=== PATIENT | male | born 1985 | race Caucasian/White ===

== ENCOUNTER 2023-12-17 16:55 | Inpatient (IN) | payer SELFPAY ==
[2023-12-17 17:08] VITALS: BP 115/78; PULSE 102; RESP 18; TEMP 36.2; O2SAT 99; BMI 44.9
--- NOTE | 2023-12-17 17:42 | PC.NURSE ---
pt a+o x3, he denies pain, vss. pt walked in to waiting room and reported SI w plan to hang himself. he reports that he went to [place] to buy rope but didn't have any money. he said that he thought about stealing the rope but did not. he says that he's seeking help. pt changed into hospital attire, belongings searched and placed into locker 4. belongings list done and signed by him.. pt cooperative with the process. pt resting quietly in his room at this time.
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
[2023-12-17 18:32] LABS: Appearance Urine Cloudy; Color Urine Dark Yellow; Glucose Urine UA Negative (Negative); Leukocyte Esterase Urine Trace (Negative); Nitrite Urine Negative (Negative); PH 6.5 (5.0-9.0); Specific Gravity - Urine >= 1.030 (1.005-1.025); UMIC TRIGGER UACC YES; Urine Blood Negative (Negative); Urine Ketones 15 mg/dL (Negative); Urine Protein 100 (2+) mg/dL (Neg-Trace)
[2023-12-17 18:40] LABS: Amphetamine Screen Urine Not Detected (Not Detect); Bacteria Urine None Seen (None Seen); Barbiturates, Urine Not Detected (Not Detect); Benzodiazepines Screen Urine Not Detected (Not Detect); Cannabinoid Screen Urine POSITIVE (Not Detect); Cocaine Screen Urine Not Detected (Not Detect); Fentanyl, urine Not Detected (Not Detect); Hyaline Casts Urine >20 /LPF (0-2); Opiate Screen Urine Not Detected (Not Detect); Phencyclidine Screen Urine Not Detected (Not Detect); RBC Urine 0-2 /HPF (0-2); UACC Culture Trigger YES
[2023-12-17] MEDS: HaloperidoL 5 MG TABLET PO (19:09)
[2023-12-17] MEDS: LORazepam 1 MG TABLET 2 MG PO (19:09)
[2023-12-17 20:37] LABS: MANUAL DIFF FLAG NO
[2023-12-17 20:39] LABS: Basophils Percent Auto 0.2 % (0-2); Eosinophils Absolute Auto 0.1 X10*3/uL (0.0-0.4); Eosinophils Percent Auto 0.7 % (0-4); Hematocrit 41.6 % (42.0-52.0); Hemoglobin 14.4 g/dl (14.0-18.0); Imm Gran Abs Auto 0.03 X10*3/uL (0.00-0.03); Imm Gran Pct Auto 0.4 % (0.0-0.4); Lymphocytes Absolute Auto 2.4 X10*3/uL (1.2-4.9); Lymphocytes Percent Auto 29.1 % (20-40); Mean Corpuscular HGB Conc 34.6 g/dl (31.0-36.0); Mean Corpuscular Hemoglobin 28.3 pg (27.0-33.0); Mean Corpuscular Volume 81.9 fL (80.0-98.0); Mean Platelet Volume 10.2 fL (9.4-12.4); Monocytes Absolute Auto 0.7 X10*3/uL (0.1-1.2); Monocytes Percent Auto 8.8 % (2-11); Neutrophils Percent Auto 60.8 % (45-73); Platelet Count 232 X10*3/uL (160-400); Red Blood Count 5.08 X10*6/uL (4.60-5.80); Red Cell Distribution Width 13.2 % (11.0-16.0); White Blood Count 8.2 X10*3/uL (4.8-10.8)
[2023-12-17 20:53] LABS: Ethanol < 10 mg/dL
[2023-12-17 20:56] LABS: Alanine Aminotransferase 46 U/L (0-40); Albumin Level 3.7 g/dL (3.5-5.0); Alkaline Phosphatase 72 U/L (39-117); Anion Gap 12 (12-20); Aspartate Amino Transferase 40 U/L (5-37); Bilirubin Direct 0.1 mg/dL (0.0-0.5); Bilirubin Total 0.3 mg/dL (0.0-1.0); Blood Urea Nitrogen 18 mg/dL (9-16); Calcium 9.1 mg/dL (8.4-10.2); Carbon Dioxide 27 mmol/L (22-29); Chloride 105 mmol/L (96-108); Creatinine Clr Calc Pharmacy 129.5; Estimated Glomerular Filt Rate > 60; Glucose Random 104 mg/dL (60-115); Potassium 3.6 mmol/L (3.3-5.1); Sodium 140 mmol/L (135-145); Total Protein 6.2 g/dL (6.5-8.0)
[2023-12-18 02:14] VITALS: BP 104/68; PULSE 70; RESP 17; TEMP 36.5; O2SAT 99
[2023-12-18 08:00] VITALS: BP 117/76; PULSE 76; TEMP 36.7; O2SAT 97
[2023-12-18 08:30] LABS: COVID-19 Test Negative (Negative); IDNOW Serial# 152EDE1D
[2023-12-18] MEDS: Haloperidol Lactate 5 MG/ML VIAL IM (10:10)
[2023-12-18] MEDS: LORazepam 2 MG/ML VIAL IM (10:10)
--- NOTE | 2023-12-18 10:53 | PHA.MEDREC ---
Pharmacy Consult ? Medication Reconciliation Pharmacy has completed the medication reconciliation.No home meds per nursing
--- NOTE | 2023-12-18 10:55 | MHC.CARE ---
Pt has been accepted to [facility].
--- NOTE | 2023-12-18 11:58 | PC.NURSE ---
Bernardo was OOB this morning and was observed self dialoguing and responding to internal stimuli in his room. Bernardo had a few episodes of increased agitation when he thought staff were looking in his room and then stated he was Gabriele and stated I bet you didn't know they will all come to baptism and serve me . Bernardo then began yelling at a staff member that they needed to stop making demonic faces at him. He was difficult to redirect and began to advance toward the staff and was making threatening statements. Security and MD called. IM Haldol 5mg and IM Ativan 2mg given. Bernardo was moved to the first room that opened that had a door as hearing staff and other patients talking was very triggering for him. Bernardo is currently resting in bed.
[2023-12-18 15:46] VITALS: RESP 18
--- OUTSIDE RECORDS SUMMARY | 2023-12-18 16:33 | XMS_ITS | Continuity of Care Document ---
Author Name Unknown Organization Psych Address Unknown Care Team Providers Care Qualified Craft Worker Electrician Name Role Phone No Local PCP, No Local PCP Primary Care Physicia n Unavailable Encounter Date(s): 06/20/23 - 06/26/23 Psych [address], [place] [address] - Encounter Diagnosis Cannabis abuse(Discharge Diagnosis) - 06/26/23 Alcohol abuse(Discharge Diagnosis) - 06/26/23 Paranoid schizophrenia, chronic condition with acute exacerbation(Discharge Diagnosis) - 06/24/23 Auditory hallucinations(Discharge Diagnosis) - 06/20/23 Discharge Disposition: Home or Self Care Attending Physician: CHUY GIFFORD MD Admitting Physician: CHUY GIFFORD MD Allergies, Adverse Reactions, Alerts Substance Reaction Severity Status buPROPion Urticaria Mild Active Assessment and Plan Extracted from: Title:Physician Progress Note - Psychiatric Auth or:Kristian Rand MD Date:06/25/23 He has reconstituted quickly with medication and safe environment.?? He is indeed fortunate that low-dose olanzapine has been so effective, he has not required any as needed supplementation.?? He will return to his previous housing??but now with a series of??wraparound services including primary care and mental health referrals. Auditory hallucinations Paranoid schizophrenia, chronic condition with acute exacerbation Discharge tomorrow Inpatient acetaminophen, 1000 mg= 2 tab(s), Oral, q6hr, PRN melatonin, 6 mg= 2 tab(s), Oral, qHS, PRN Milk of Magnesia, 30 mL, Oral, Daily, PRN Mylanta, 30 mL, Oral, QID, PRN OLANZapine, 10 mg= 1 tab(s), Oral, qHS Vistaril, 25 mg= 1 tab(s), Oral, q4hr, PRN Home diphenhydrAMINE 25 mg oral tablet, 25 mg= 1 tab(s), Oral, q6hr, PRN Excedrin Migraine 250 mg-250 mg-65 mg oral tablet, 2 tab(s), Oral, q6hr, PRN Tums 500 mg oral tablet, chewable, 500 mg= 1 tab(s), Chewed, Daily, PRN ?? I certify that inpatient psychiatric hospital admission is medically necessary for treatment which could reasonably be expected to improve the patient's condition: Yes_ In need of ILOC due to:??Decompensation??of chronic mental health??condition_ Is the patient involuntary? _No ?? Treatment Plan Discussed and Reviewed with Patient:_Yes Receiving active treatment through medication, individual, group, and milieu therapy Tomorrow morning Extracted from: Title:Physician Progress Note - Psychiatric Auth or:Kristian Rand MD Date:06/24/23 He has been able??to reconst itute with low-dose olanzapine??and??a few days of??lorazepam supplementation.?? We talked about??discharge within the next 2 days??and he agrees with this plan.?? career services director is working to secure??his ongoing housing??and placement with aftercare services Auditory hallucinations ??Paranoid schizophrenia??with decompensation??due to medication nonadherence??and reconstitution??following medication??reinstatement Taper lorazepam,??continue medication and plan for midweek discharge Inpatient acetaminophen, 1000 mg= 2 tab(s), Oral, q6hr, PRN LORazepam, 1 mg= 1 tab(s), Oral, TID, PRN melatonin, 6 mg= 2 tab(s), Oral, qHS, PRN Milk of Magnesia, 30 mL, Oral, Daily, PRN Mylanta, 30 mL, Oral, QID, PRN OLANZapine, 10 mg= 1 tab(s), Oral, qHS Vistaril, 25 mg= 1 tab(s), Oral, q4hr, PRN Home diphenhydrAMINE 25 mg oral tablet, 25 mg= 1 tab(s), Oral, q6hr, PRN Excedrin Migraine 250 mg-250 mg-65 mg oral tablet, 2 tab(s), Oral, q6hr, PRN Tums 500 mg oral tablet, chewable, 500 mg= 1 tab(s), Chewed, Daily, PRN ?? I certify that inpatient psychiatric hospital admission is medically necessary for treatment which could reasonably be expected to improve the patient's condition: _Yes In need of ILOC due to:??Psychosis_ Is the patient involuntary? _ id the patient receive a court order for involuntary medication? _ ?? Treatment Plan Discussed and Reviewed with Patient:_ Receiving active treatment through medication, individual, group, and milieu therapy Midweek??is a target date Extracted from: Title:Physician Progress Note - Psychiatric Auth or:José Manuel Lopez MD Date:06/23/23 The patient appears to be im proving; symptoms of psychosis are subsiding, in particular auditory hallucinations and paranoia. ??The patient is currently on olanzapine 10 mg nightly, which has been helpful in resolving his current??symptoms. The patient continues to be in need of inpatient hospitalization for stabilization and medication management. Auditory hallucinations Inpatient acetaminophen, 1000 mg= 2 tab(s), Oral, q6hr, PRN LORazepam, 1 mg= 1 tab(s), Oral, TID, PRN melatonin, 6 mg= 2 tab(s), Oral, qHS, PRN Milk of Magnesia, 30 mL, Oral, Daily, PRN Mylanta, 30 mL, Oral, QID, PRN OLANZapine, 10 mg= 1 tab(s), Oral, qHS Vistaril, 25 mg= 1 tab(s), Oral, q4hr, PRN Home diphenhydrAMINE 25 mg oral tablet, 25 mg= 1 tab(s), Oral, q6hr, PRN Excedrin Migraine 250 mg-250 mg-65 mg oral tablet, 2 tab(s), Oral, q6hr, PRN Tums 500 mg oral tablet, chewable, 500 mg= 1 tab(s), Chewed, Daily, PRN I certify that inpatient psychiatric hospital admission is medically necessary for treatment which could reasonably be expected to improve the patient's condition: _yes In need of ILOC due to:_psychosis Is the patient involuntary? _No ?? Treatment Plan Discussed and Reviewed with Patient:_y Receiving active treatment through medication, individual, group, and milieu therapy Extracted from: Title:Physician Progress Note - Psychiatric Auth or:José Manuel Lopez MD Date:06/22/23 The patient appears to be im proving; symptoms of psychosis are subsiding. The patient is currently on olanzapine 10 mg nightly, which seems to be helpful in resolving his psychotic symptoms. The patient continues to be in need of inpatient hospitalization for stabilization and medication management. Auditory hallucinations Inpatient acetaminophen, 1000 mg= 2 tab(s), Oral, q6hr, PRN LORazepam, 1 mg= 1 tab(s), Oral, TID, PRN melatonin, 6 mg= 2 tab(s), Oral, qHS, PRN Milk of Magnesia, 30 mL, Oral, Daily, PRN Mylanta, 30 mL, Oral, QID, PRN OLANZapine, 10 mg= 1 tab(s), Oral, qHS Vistaril, 25 mg= 1 tab(s), Oral, q4hr, PRN Home diphenhydrAMINE 25 mg oral tablet, 25 mg= 1 tab(s), Oral, q6hr, PRN Excedrin Migraine 250 mg-250 mg-65 mg oral tablet, 2 tab(s), Oral, q6hr, PRN Tums 500 mg oral tablet, chewable, 500 mg= 1 tab(s), Chewed, Daily, PRN ?? I certify that inpatient psychiatric hospital admission is medically necessary for treatment which could reasonably be expected to improve the patient's condition: _yes In need of ILOC due to:_psychosis Is the patient involuntary? _No ?? Treatment Plan Discussed and Reviewed with Patient:_y Receiving active treatment through medication, individual, group, and milieu therapy Extracted from: Title:History & Physical - Psychiatric Author:Maile Rand MD Date:06/21/23 Reason for Admission The patient presents with psychiatric problem. ??38 year old male presents to the ED with a psychiatric problem. Patient reports he is having problems and a??? war? ??with his head. Patient notes he had drank alcohol tonight and smoked marijuana. Patient reports he had been hearing voices in his head earlier. Patient denies suicidal and homicidal ideation. Patient? s history is limited due to mental status..?? [1] Substance Abuse History He does not provide details but??offers that he knows he should not be drinking alcohol??or using cannabis??and describes it as self-medication . Mental Status Exam The patient is alert??and oriented in all 4 spheres,??and to situation.?? They are dressed in hospital garb??with acceptable hygiene.?? The behavior is appropriate??but reserved and they are engaged in the interview.?? Psychomotor energy is slightly slowed and there are no tics,??tremors, or involuntary movements.?? Speech??is normal pat, tone, and volume??without conversational lag.?? Mood is?? better ??and affect is blunted??but with good eye contact. ??Thought process is concrete and goal oriented, and it is future oriented.?? Thought content is currently??without??expressed or observed??hallucination or??expressed delusion. ??At the moment he does not appear to be responding to internal stimuli.?Memory is intact to recent events as tested by known items. There is no self-harm expression.?There is no suicidal or homicidal expression.?? There are no prominent cognitive distortions.?? Insight and judgment are fair, attention and concentration are??mildly distracted.??Impulse control is intact. ??Knowledge is appropriate for level of education. ? Assessment/Plan He has a pre-existing diagnosis of??paranoid schizophrenia??and??provides a??coherent history of??onset of symptoms, history,??effectiveness of medication??and willingness to reenter treatment.?? He also provides access to??collateral information and we will gain this.?? In the meantime he has had a very positive??response to low- dose olanzapine/lorazepam. Diagnosis Auditory hallucinations ??Paranoid schizophrenia Plan Reintroduce medication, olanzapine 10 mg daily??lorazepam 1 mg??p.o. 3 times daily??as needed,??collateral??information gathering Functional Status 06/26/23 ADLs Independent Medications diphenhydrAMINE 25 mg oral tablet 25 mg = 1 tab(s), Oral, q6hr, PRN PRN: as needed for allergy symptoms Start Date: 06/20/23 Status: Ordered Excedrin Migraine 250 mg-250 mg-65 mg oral tablet 2 tab(s), Oral, q6hr, PRN PRN for headache Start Date: 06/20/23 Status: Ordered OLANZapine 10 mg oral tablet 10 mg = 1 tab(s), Oral, qHS, # 28 tab(s), 0 Refill(s), Pharmacy: [facility] Pharmacy, 172, cm, 06/20/23 22:39:00 EDT, Height/Length Dosing, 120, kg, 06/20/23 22:39:00 EDT, Weight Dosing Start Date: 06/25/23 Status: Ordered Tums 500 mg oral tablet, chewable 500 mg = 1 tab(s), Chewed, Daily, PRN PRN: as needed for dyspepsia Start Date: 06/20/23 Status: Ordered Mental Status 06/26/23 Level of Consciousness Alert Orientation Assessment Oriented x 4 Results Laboratory List Name Date Glucose Level 06/21/23 Lipid Panel (Fasting Lipid Profile) 06/21 Drug Screen Urine (Urine Tox Screen) 05/26 06/16 .Estimated Glomerular Filtration Rate Acetaminophen Level 06/20/23 Auto Differential 06/20/23 CBC Auto Diff reflex Manual Diff 06/20/23 Comprehensive Metabolic Panel 06/20/23 Ethanol Level (Alcohol Level) 06/20/23 Salicylate Level 06/20/23 Thyroid [place] 06/20/23 Most recent to oldest [Reference Range]: 1 2 Benzodiazepines Screen Detected *NA* (06/20/23 5:50 PM) Cocaine Screen Not Detected *NA* (06/20/23 5:50 PM) Opiate Screen Not Detected *NA* (06/20/23 5:50 PM) Phencyclidine Screen Not Detected *NA* (06/20/23 5:50 PM) Tricyclics Screen Not Detected *NA* (06/20/23 5:50 PM) Amphetamines Screen Not Detected *NA* (06/20/23 5:50 PM) Barbiturates Screen Not Detected *NA* (06/20/23 5:50 PM) T-Cannabinol Screen Detected *NA* (06/20/23 5:50 PM) Methamphetamines Screen Not Detected *NA* (06/20/23 5:50 PM) AGAP 14 *NA* (06/20/23 4:18 AM) LDL 134 mg/dL *NA* (06/21/23 6:15 AM) Ldl/Hdl 2.6 mg/dL *NA* (06/21/23 6:15 AM) Chol/Trig 1.90 mg/dL *NA* (06/21/23 6:15 AM) VLDL 22 mg/dL *NA* (06/21/23 6:15 AM) A/G Ratio 1.0 *NA* (06/20/23 4:18 AM) BUN/Creat Ratio 13 *NA* (06/20/23 4:18 AM) RBC [4.50-5.90 x10(6)/mcL] 5.68 x10(6)/m cL (06/20/23 4:18 AM) RDW [11.5-14.5 %] 12.5 % (06/20/23 4:18 AM) Salicylate Level [2.8-20.0 mg/dL] 2.3 mg /dL *LOW* (06/20/23 4:18 AM) Sodium Level [136-145 mmol/L] 140 mmol/L (06/20/23 4:18 AM) Total Protein [6.4-8.2 gm/dL] 8.2 gm/dL (06/20/23 4:18 AM) Trig 111 mg/dL *NA* (06/21/23 6:15 AM) TSH [0.360-3.740 mcIU/mL] 1.190 mcIU/mL (06/20/23 4:18 AM) AST [15-37 IU/L] 21 IU/L (06/20/23 4:18 AM) Bili Total [0.20-1.00 mg/dL] 0.60 mg/dL (06/20/23 4:18 AM) Chol 207 mg/dL *NA* (06/21/23 6:15 AM) CO2 [21-32 mmol/L] 23 mmol/L (06/20/23 4:18 AM) Ethanol Level 8.6 mg/dL *NA* (06/20/23 4:18 AM) Acetaminophen Level [10.0-30.0 mcg/mL] < 2.0 mcg/mL *LOW* (06/20/23 4:18 AM) Albumin Level [3.4-5.0 gm/dL] 4.2 gm/dL (06/20/23 4:18 AM) Alk Phos [45-117 unit/L] 97 unit/L (06/20/23 4:18 AM) ALT [13-61 IU/L] 26 IU/L (06/20/23 4:18 AM) Hct [41.0-53.0 %] 47.3 % (06/20/23 4:18 AM) HDL 51 mg/dL *NA* (06/21/23 6:15 AM) Hgb [13.9-16.3 gm/dL] 16.5 gm/dL *HI* (06/20/23 4:18 AM) MCH [26.0-34.0 pg] 29.0 pg (06/20/23 4:18 AM) MCHC [31.0-37.0 gm/dL] 34.9 gm/dL (06/20/23 4:18 AM) MCV [80-100 fL] 83 fL (06/20/23 4:18 AM) MPV [9.2-12.7 fL] 10.7 fL (06/20/23 4:18 AM) Glucose Level [74-106 mg/dL] 99 mg/dL (06/21/23 6:15 AM) 132 mg/dL *HI* (06/20/23 4:18 AM) Platelet [150-350 x10(3)/mcL] 217 x10(3) /mcL (06/20/23 4:18 AM) Potassium Level [3.5-5.1 mmol/L] 3.3 mmo l/L *LOW* (06/20/23 4:18 AM) WBC [4.5-11.0 x10(3)/mcL] 6.7 x10(3)/mcL (06/20/23 4:18 AM) BUN [7-18 mg/dL] 16 mg/dL (06/20/23 4:18 AM) Calcium Level [8.5-10.1 mg/dL] 9.9 mg/dL (06/20/23 4:18 AM) Chloride [98-107 mmol/L] 106 mmol/L (06/20/23 4:18 AM) eGFR AA >60 mL/min/1.73 m2 *NA* (06/20/23 4:18 AM) eGFR RICHARD >60 mL/min/1.73 m2 *NA* (06/20/23 4:18 AM) Neutrophil Absolute [1.50-7.80 x10(3)/mc L] 3.79 x10(3)/mcL (06/20/23 4:18 AM) Lymphocyte Absolute [1.10-4.80 x10(3)/mc L] 2.07 x10(3)/mcL (06/20/23 4:18 AM) Monocyte Absolute 0.67 x10(3)/mcL *NA* (06/20/23 4:18 AM) Eosinophil Absolute 0.06 x10(3)/mcL *NA* (06/20/23 4:18 AM) Basophil Absolute 0.04 x10(3)/mcL *NA* (06/20/23 4:18 AM) Imm Gran Absolute 0.03 /mcL *NA* (06/20/23 4:18 AM) NRBC % [0.0-0.2 %] 0.0 % (06/20/23 4:18 AM) Methadone Screen Not Detected *NA* (06/20/23 5:50 PM) Osmol Calculated 283 mOsm/kg *NA* (06/20/23 4:18 AM) Eosinophil Auto [1.0-4.0 %] 0.9 % *LOW* (06/20/23 4:18 AM) Immature Granulocyte Auto 0 % *NA* (06/20/23 4:18 AM) Lymphocyte Auto [24.0-44.0 %] 31.1 % (06/20/23 4:18 AM) Monocyte Auto [2.0-11.0 %] 10.1 % (06/20/23 4:18 AM) Neutrophil Auto [31.0-76.0 %] 56.8 % (06/20/23 4:18 AM) Basophil Auto [0.0-2.0 %] 0.6 % (06/20/23 4:18 AM) Creatinine [0.6-1.3 mg/dL] 1.2 mg/dL (06/20/23 4:18 AM) Oxycodone Screen Not Detected *NA* (06/20/23 5:50 PM) Buprenorphine Screen Not Detected *NA* (06/20/23 5:50 PM) Vital Signs Most recent to oldest [Reference Range]: 1 2 3 Temperature Oral [35.8-37.3 DegC] 37.5 DegC *HI* (06/20/23 7:34 PM) 36.5 DegC (06/20/23 12:26 PM) 36.7 DegC (06/20/23 3:40 AM) Temperature Temporal Artery [36.3-37.8 DegC] 36.5 DegC (06/26/23 7:02 AM) 36.5 DegC (06/24/23 8:00 AM) 36.5 DegC (06/23/23 8:02 AM) Apical Heart Rate [60-100 bpm] 98 bpm (06/20/23 7:34 PM) Peripheral Pulse Rate [60-100 bpm] 83 bpm (06/26/23 7:02 AM) 68 bpm (06/24/23 8:00 AM) 103 bpm *HI* (06/23/23 8:02 AM) Respiratory Rate [14-20 br/min] 16 br/min (06/20/23 10:23 PM) 18 br/min (06/20/23 12:26 PM) 20 br/min (06/20/23 3:40 AM) Blood Pressure [90-140/60-90 mmHg] 124/71mmHg (06/26/23 7:02 AM) 131/97mmHg (06/24/23 8:00 AM) 144/98mmHg *HI* (06/23/23 8:02 AM) Blood Pressure 124/83mmHg (06/20/23 10:23 PM) 118/82mmHg (06/20/23 7:34 PM) 127/82mmHg (06/20/23 12:26 PM) Social History Social History Type Response Smoking Status Current every day massimo givens; Type: Cigarettes entered on: 06/20/23 Sex Male Hospital Discharge Instructions Patient Education 06/26/2023 08:32:51 Caring for Your Mental Health Caring for Your Mental Health Mental health is emotional, psychological, and social well-being. Mental health is just as important as physical health. In fact, mental and physical health are connected, and you need both to be healthy. Some signs of good mental health (well-being) include: ??? Being able to attend to tasks at home, school, or work. ??? Being able to manage stress and emotions. ??? Practicing self-care, which may include: ??? A regular exercise pattern. ??? A reasonably healthy diet. ??? Supportive and trusting relationships. ??? The ability to relax and calm yourself (self-calm). ??? Having pleasurable hobbies and activities to do. ??? Believing that you have meaning and purpose in your life. ??? Recovering and adjusting after facing challenges (resilience). You can take steps to build or strengthen these mentally healthy behaviors. There are resources andsupport to help you with this. Why is caring for mental health important? Caring for your mental health is a big part of staying healthy. Everyone has times when feelings, thoughts, or situations feel overwhelming. Mental health means having the skills to manage what feelsoverwhelming. If this sense of being overwhelmed persists, however, you might need some help. If you have some of the following signs, you may need to take better care of your mental health or seek help from a health care provider or mental health professional: ??? Problems with energy or focus. ??? Changes in eating habits. ??? Problems sleeping, such as sleeping too much or not enough. ??? Emotional distress, such as anger, sadness, depression, or anxiety. ??? Major changes in your relationships. ??? Losing interest in life or activities that you used to enjoy. If you have any of these symptoms on most days for 2 weeks or longer: ??? Talk with a close friend or family member about how you are feeling. ??? Contact your health care provider to discuss your symptoms. ??? Consider working with a mental health professional. Your health care provider, family, or friends may be able to recommend a therapist. How to promote emotional and mental health Managing emotions ??? Learn to identify emotions and be honest with yourself about what you are feeling. Recognizing your emotions is the first step in learning to deal with them. ??? Practice ways to appropriately express feelings. Remember that you can control your feelings. They do not control you. ??? Practice stress management techniques, such as: ??? Relaxation techniques, like breathing or muscle relaxation exercises. ??? Exercise. Regular activity can lower your stress level. ??? Changing what you can change and accepting what you cannot change. ??? Build up your resilience so that you can recover and adjust after big problems or challenges. Practice resilient behaviors and attitudes: ??? Set long-term goals and focus on them. ??? Develop and maintain healthy, supportive relationships. ??? Take care of yourself physically by eating a healthy diet, getting plenty of sleep, and exercising regularly. ??? Develop self-awareness. Ask others to give feedback about how they see you. ??? Practice mindfulness meditation to help you stay calm when dealing with daily challenges. ??? Learn to respond to situations in healthy ways, rather than reacting with your emotions. ??? Keep a positive attitude, and believe in yourself. Your view of yourself affects your mental health. ??? Develop your listening and empathy skills. These will help you deal with difficult situations and communications. ??? Practice acts of kindness and helpfulness toward others. ??? Spend time in nature being in the moment and appreciating its beauty. ??? Remember that emotions can be used as a good source of communication and are a great source of energy. Try to laugh and find humor in life. Sleeping Get the right amount and quality of sleep. Sleep has a big impact on physical and mental health. Toimprove your sleep: ??? Go to bed and wake up around the same time every day. ??? Limit screen time before bedtime. This includes the use of your mobile phone, TV, computer, andtablet. ??? Keep your bedroom dark and cool. Activity Exercise or do some physical activity regularly. This helps: ??? Keep your body strong, especially during times of stress. ??? Get rid of chemicals in your body (hormones) that build up when you are stressed. ??? Build up your resilience. Eating and drinking ??? Eat a healthy diet that includes whole grains, vegetables, fresh fruits, and lean proteins. If you have questions about what foods are best for you, ask your health care provider. ??? Try not to turn to sweet, salty, or otherwise unhealthy foods when you are tired or unhappy. This can lead to unwanted weight gain and is not a healthy way to cope with emotions. Where to find more information You can find more information and guidance about how to care for your mental health from: ??? National [place] on Mental Illness (GAIL): www.gail.org ??? National [place] of Mental Health: www.nimh.nih.gov ??? Centers for Disease Control and Prevention: www.cdc.gov Contact a health care provider if: ??? You lose interest in being with others or you do not want to leave the house. ??? You have a hard time completing your normal activities or you have less energy than normal. ??? You cannot stay focused or you have problems with memory. ??? You feel that your senses are heightened, and this makes you upset or concerned. ??? You feel nervous or have rapid mood changes. ??? You are sleeping or eating more or less than normal. ??? You question reality or you show odd behavior that disturbs you or others. Get help right away if: ??? You have thoughts about hurting yourself or others. Get help right away if you feel like you may hurt yourself or others, or have thoughts about takingyour own life. Go to your nearest emergency room or: ??? Call 911. ??? Call the National Suicide Prevention Lifeline at or 037 in the [place] This is open 24 hours a day. ??? Text the Crisis Text Line at 074047. Summary ??? Mental health is not just the absence of mental illness. It involves understanding your emotions and behaviors, and taking steps to manage them in a healthy way. ??? If you have symptoms of mental or emotional distress, get help from family, friends, a health care provider, or a mental health professional. ??? Practice good mental health behaviors such as stress management skills, self-calming skills, exercise, healthy sleeping and eating, and supportive relationships. This information is not intended to replace advice given to you by your health care provider. Make sure you discuss any questions you have with your health care provider. Document Revised: 06/07/2022 Document Reviewed: 06/01/2022 [facility] Patient Education ?? 3 [employer]. Discharge summary * Kristian Rand MD: PERFORM Event Display: Discharge Summary Authored Date: [id number] Discharge Summary Reason for Hospitalization ? The patient presents with psychiatric problem. ??38 year old male presented to the ED with a psychiatric problem. Patient reports he is having problems and a?war?with his head.Patient notes he had drank alcohol tonight and smoked marijuana. Patient reports he had been hearing voices in his head earlier. Patient denies suicidal and homicidal ideation. Patient???s history islimited due to mental status.. [2] ? He says that??he had the onset of?? voices telling me to kill myself ??in high school.?? He said that he graduated high school and attempted college??but the voices were too much.?? He cannot count the number of hospitalizations??that he has had??but??the number??could be??around 10 panchito es??most of these in [facility].?? Most recently-estimate 2 years ago-he was in[facility]psychiatric unit in [facility].?? He does not??want to talk much about his life experiences??except to say that his last relationship??was in 2008 that he is??cisgender male??straight.?? He lives a??life that is mostly isolated??with him??either hiking alone or??playing music on??guitar or sometimes piano.?? He does not report??suicide attempts.?? I try to learn more about his life history of childhood??and he??pauses and becomes??momentarily??distraught??and simply says I was disciplined when I was a child .?? I do not ask further??and he reconstitutes quickly.?? He gives us permission to contact his??family??and??he is interested in access to resources??here in [place] [1] Discharge Diagnoses Paranoid schizophrenia,??alcohol??use disorder,??cannabis use disorder Discharge Medication List OLANZapine 10 mg oral tablet??10 mg = 1 tab(s), Oral, qHS Home Medications (4) Active diphenhydrAMINE 25 mg oral tablet??25 mg = 1 tab(s), PRN, Oral, q6hr Excedrin Migraine 250 mg-250 mg-65 mg oral tablet??2 tab(s), PRN, Oral, q6hr OLANZapine 10 mg oral tablet??10 mg = 1 tab(s), Oral, qHS Tums 500 mg oral tablet, chewable??500 mg = 1 tab(s), PRN, Chewed, Daily Condition at Discharge Mental status exam:??The patient is alert??and oriented in all 4 spheres,??and to situation.?? Theyare appropriately dressed??with acceptable hygiene.?? The behavior is appropriate and they are engaged in the interview.?? Psychomotor energy is normal and there are no tics,??tremors, or involuntarymovements.?? Speech??is normal pat, tone, and volume??without conversational lag.?? Mood is?? good ??and affect is congruent and appropriate. ??Thought process is logical and goal oriented, sequential in nature??with tight associations??and it is future oriented.?? Thought content is without obs erved??hallucination??but??he does??say that there are residual??unwelcome thoughts??which are at alevel that he can??ignore or manage. ??He reports no delusion. ??Memory is intact to recent events as tested by known items. There is no self-harm expression.?There is no suicidal or homicidal expression.?? There are no prominent cognitive distortions.?? Insight and judgment are fair, attention and concentration are intact.??Impulse control is intact. ??Knowledge is appropriate for level of education. ?? Risk assessment:??Risk??of harm to self and others??on an acute basis??is currently low.?? Risk of harm to self and others on a chronic basis??is moderate.?? Risk can increase with relapse and intoxication,??disengagement from treatment??or medication nonadherence. The patient reports no access to f irearms. Prognosis Fair,??and??the success is dependent upon two major features.?? First is sustained sobriety??and the second is medication adherence.?? Socialization and integration into??some sort of group or community locally??is??also going to be highly beneficial Physician Discharge Instructions Medications are available for 30-day supply??and can be picked up at the hospital pharmacy at discharge Discharge Patient Diet: Regular Depart Patient Activity Level Restrict: As Tolerated Follow Up As detailed in the social media developer note Discharge Disposition He is discharged back to his economic agency provided housing.?? He is encouraged to connect with??substance use support services especially [facility].?? He has a full slate of??follow-up appointments both physical health and mental health. Hospital Course He reconstituted quickly??in the??ED with??olanzapine and lorazepam.?? We continued??this regimen for the first 3 days and then discontinued the??lorazepam without difficulty.?? He recounted that each day on the olanzapine??his??mind cleared and he was??able to return to??the baseline that he likes.?? He was very sociable??in the last half of his 7-day stay??popular with other patients??and??his guitar playing was regarded as accomplished and welcomed.?? He was frequently requested to play the guitar??by others.?? By day??5 of hospitalization??the??disturbing thoughts??had??remediated??and were barely noticeable. ??He said that he could manage them??and??that the medication dosage was appropriate.?? I reflected??to him that he was fortunate that??his internal stimuli were so sensitive to??low-dose medication.?? He says he intends to continue??the medication as well as to work on his sobriety??which he now regards as his major challenge. Time Spent with Patient 30 minutes plus documentation Electronically Signed By: Kristian Rand MD Date and Time Signed: 06/26/23 09:35 EDT Physician Progress Note * Kristian Rand MD: PERFORM Event Display: Physician Progress Note Authored Date: [id number] Progress Note Subjective/24 Hour Events We meet in the hallway and stop??and talk??for the interview.?? This is the first time I have seen him up and around??socializing.?? Reports continued??that he is??playing his guitar frequently and apparently with??good reviews from the others.?? He says that I feel relieved .?? He says that the medication is at the right dosage.?? We talk about how fortunate he is to have response??to medication at low-dose.?? I tried??places and contacts for him and he??understands and??knows that he is ready to leave tomorrow.?? He can recite the discharge plans and events??following discharge.?? He does not give an??indication of how long??he plans to stay in??[place]??before returning to??family in [place].?? He says that he feels better than he has in a long time??and that the medication was helpful. Review of Systems He has no physical concerns that he brings forward other than his??dental disease and??is interested in the referral for evaluation Objective Mental Status Examination The patient is alert??and oriented in all 4 spheres,??and to situation.?? They are appropriately dressed??with today he has showered and has??acceptable hygiene.?? The behavior is appropriate and they are engaged in the interview.?? Psychomotor energy is normal and there are no tics,??tremors, or involuntary movements.?? Speech??is normal pat, tone, and volume??without conversational lag.?? Mood is?? relieved ??and affect is congruent and appropriate. ??Thought process is logical and goal oriented, sequential in nature??with tight associations??and it is future oriented.?? Thought contentis without??expressed or observed??hallucination or delusion. ??Memory is intact to recent events as tested by known items. There is no self-harm expression.?There is no suicidal or homicidal expression.?? There are no prominent cognitive distortions.?? Insight and judgment are fair, attention and concentration are intact.??Impulse control is intact. ??Knowledge is appropriate for level of education. ?? Results Lab Results None pending Assessment/Plan He has reconstituted quickly with medication and safe environment.?? He is indeed fortunate that low-dose olanzapine has been so effective, he has not required any as needed supplementation.?? He will return to his previous housing??but now with a series of??wraparound services including primary care and mental health referrals. Diagnosis Auditory hallucinations Paranoid schizophrenia, chronic condition with acute exacerbation Plan Discharge tomorrow Medications Inpatient acetaminophen, 1000 mg= 2 tab(s), Oral, q6hr, PRN melatonin, 6 mg= 2 tab(s), Oral, qHS, PRN Milk of Magnesia, 30 mL, Oral, Daily, PRN Mylanta, 30 mL, Oral, QID, PRN OLANZapine, 10 mg= 1 tab(s), Oral, qHS Vistaril, 25 mg= 1 tab(s), Oral, q4hr, PRN Home diphenhydrAMINE 25 mg oral tablet, 25 mg= 1 tab(s), Oral, q6hr, PRN Excedrin Migraine 250 mg-250 mg-65 mg oral tablet, 2 tab(s), Oral, q6hr, PRN Tums 500 mg oral tablet, chewable, 500 mg= 1 tab(s), Chewed, Daily, PRN Physician Re-Certification of Medical Necessity ?? I certify that inpatient psychiatric hospital admission is medically necessary for treatment which could reasonably be expected to improve the patient's condition: Yes_ In need of ILOC due to:??Decompensation??of chronic mental health??condition_ Is the patient involuntary? _No Treatment Plan: ?? Treatment Plan Discussed and Reviewed with Patient:_Yes Receiving active treatment through medication, individual, group, and milieu therapy Discharge Planning Tomorrow morning Time Spent with Patient 15 minutes??+10 minutes documentation Electronically Signed By: Kristian Rand MD Date and Time Signed: 06/25/23 14:57 EDT * Kristian Rand MD: PERFORM Event Display: Physician Progress Note Authored Date: [id number] Progress Note Subjective/24 Hour Events We meet including the??social media developer. ??He is in the [facility] room??watching music videos.?? He is seated calmly??and makes good??and??sustained eye contact.?? He reviews his??progress??and says that??his unwelcome thoughts are still present but are manageable.?? He is no longer fearful or disturbed.?? He has enjoyed??playing his guitar??over the weekend.?? I asked him how much??longer he thinks he would want to stay in the hospital and he says I was sort of looking for professional opinion on that .?? We talk about??discontinuing the lorazepam which was meant??for short-term use??and he agrees.?? He says that he likes the medication??and it agrees with him. ??He would like to continue it and he reports no side effects.?? Much of the rest of the conversation takes place around??economic benefits,??aftercare, and??plans while he remains in the area??he makes it clear that he plans to stay into the fall??and then to return??back to extended family in [place]. Review of Systems Over the weekend he slept 9.25 hours on Saturday night and??10 hours last night.?? He reports no somatic symptoms, no muscle tightness, no??unsteadiness.?? He reports no chest or??cardiac complaints and no abdominal??problems. Objective Vitals & Measurements T:??36.5?C??(Temporal Artery)?? HR:??68??(Peripheral)?? BP:??131/97?? SpO2:??100%?? Mental Status Examination The patient is alert??and oriented in all 4 spheres,??and to situation.?? They are appropriately dressed??with poor hygiene, and he accepts a??suggestion that he might feel better??if he were to??shower and change clothes.?? The behavior is guarded and they are engaged in the interview.?? Psychomotor energy is normal and there are no tics,??tremors, or involuntary movements.?? Speech??is normal pat, tone, and soft??volume??without conversational lag.?? Mood is?? really calm ??and affect is reserved, a bit flat, and appropriate. ??Thought process is concrete??and goal oriented,??and it is future oriented. ??Thought content continues to contain??auditory??hallucination but these are regarded as minimal??and??acceptable??by him. ??There is no longer??paranoid??presentation??or delusion. ??Memory is intact to recent events as tested by known items. There is no self-harm expression.?There is no suicidal or homicidal expression.?? There are no prominent cognitive distortions.?? Insight and judgment are fair, attention and concentration are intact.??Impulse control is intact.? Results Lab Results None pending Assessment/Plan He has been able??to reconstitute with low-dose olanzapine??and??a few days of??lorazepam supplementation.?? We talked about??discharge within the next 2 days??and he agrees with this plan.?? career services director is working to secure??his ongoing housing??and placement with aftercare services Diagnosis Auditory hallucinations ??Paranoid schizophrenia??with decompensation??due to medication nonadherence??and reconstitution??following medication??reinstatement Plan Taper lorazepam,??continue medication and plan for midweek discharge Medications Inpatient acetaminophen, 1000 mg= 2 tab(s), Oral, q6hr, PRN LORazepam, 1 mg= 1 tab(s), Oral, TID, PRN melatonin, 6 mg= 2 tab(s), Oral, qHS, PRN Milk of Magnesia, 30 mL, Oral, Daily, PRN Mylanta, 30 mL, Oral, QID, PRN OLANZapine, 10 mg= 1 tab(s), Oral, qHS Vistaril, 25 mg= 1 tab(s), Oral, q4hr, PRN Home diphenhydrAMINE 25 mg oral tablet, 25 mg= 1 tab(s), Oral, q6hr, PRN Excedrin Migraine 250 mg-250 mg-65 mg oral tablet, 2 tab(s), Oral, q6hr, PRN Tums 500 mg oral tablet, chewable, 500 mg= 1 tab(s), Chewed, Daily, PRN Physician Re-Certification of Medical Necessity ?? I certify that inpatient psychiatric hospital admission is medically necessary for treatment which could reasonably be expected to improve the patient's condition: _Yes In need of ILOC due to:??Psychosis_ Is the patient involuntary? _ id the patient receive a court order for involuntary medication? _ Treatment Plan: ?? Treatment Plan Discussed and Reviewed with Patient:_ Receiving active treatment through medication, individual, group, and milieu therapy Discharge Planning Midweek??is a target date Time Spent with Patient 20 minutes +15 minutes documentation??and preparation Coordination of Care career services director working to??create a comprehensive network for??his remaining months in [place] Electronically Signed By: Kristian Rand MD Date and Time Signed: 06/24/23 10:03 EDT * José Manuel Lopez MD: PERFORM, MODIFY Event Display: Physician Progress Note Authored Date: [id number] Progress Note Subjective/24 Hour Events The patient was seen, the chart reviewed, and discussed with the team. ?? The patient stated that he continues to remain anxious. I think a lot about people, what they say, and what they do . They tell me, I can't do this and that. This makes him anxious and depressed. While describing this, he stopped talking for a moment and said it is hard to explain . Duringhis current inpatient stay, he takes Ativan at least once a day to treat his anxiety. He noted a decrease in symptoms of psychosis, including hallucinations, yet he has intermittent auditory hallucinations, less intense, less frequent, and non command. His paranoia has decreased significantly, he rated it mild. He endorses gaining benefit from current medication regimen as well as hospitalizations. He talked about his living situation, has spoken to the video arcade manager of a hotel, who advised him to call [employer] to hold his room. He remains compliant with medications, with no side effects reported. Objective Vitals & Measurements T:??36.5?C??(Temporal Artery)?? HR:??103??(Peripheral)?? BP:??144/98?? SpO2:??100%?? Mental Status Examination The patient was cooperative, engaging,??mildly anxious, ??good??eye contact,??speech soft and slow low volume,??described mood okay, affect??restricted,??thought process??overall linear and goal-directed, thought content??positive for paranoia,??no delusions elicited,??denied suicidality/homicidality, positive for??intermittent auditory hallucinations, non- command, no visual hallucinations.?? Insight and judgment fair. Assessment/Plan The patient appears to be improving; symptoms of psychosis are subsiding, in particular auditory hallucinations and paranoia. ??The patient is currently on olanzapine 10 mg nightly, which has been helpful in resolving his current??symptoms. The patient continues to be in need of inpatient hospitaliz ation for stabilization and medication management. Diagnosis Auditory hallucinations Medications Inpatient acetaminophen, 1000 mg= 2 tab(s), Oral, q6hr, PRN LORazepam, 1 mg= 1 tab(s), Oral, TID, PRN melatonin, 6 mg= 2 tab(s), Oral, qHS, PRN Milk of Magnesia, 30 mL, Oral, Daily, PRN Mylanta, 30 mL, Oral, QID, PRN OLANZapine, 10 mg= 1 tab(s), Oral, qHS Vistaril, 25 mg= 1 tab(s), Oral, q4hr, PRN Home diphenhydrAMINE 25 mg oral tablet, 25 mg= 1 tab(s), Oral, q6hr, PRN Excedrin Migraine 250 mg-250 mg-65 mg oral tablet, 2 tab(s), Oral, q6hr, PRN Tums 500 mg oral tablet, chewable, 500 mg= 1 tab(s), Chewed, Daily, PRN Physician Re-Certification of Medical Necessity I certify that inpatient psychiatric hospital admission is medically necessary for treatment which could reasonably be expected to improve the patient's condition: _yes In need of ILOC due to:_psychosis Is the patient involuntary? _No Treatment Plan: ?? Treatment Plan Discussed and Reviewed with Patient:_y Receiving active treatment through medication, individual, group, and milieu therapy Electronically Signed By: José Manuel Lopez MD Date and Time Signed: 06/23/23 16:32 EDT * José Manuel Lopez MD: MODIFY, PERFORM Event Display: Physician Progress Note Authored Date: [id number] Progress Note Subjective/24 Hour Events The patient was seen, the chart reviewed, and discussed with the team. Met with the patient, accompanied by TEMPORARY HELP AGENCY REFERRAL CLERK student Terrie Sullivan ??Patient consented for??TEMPORARY HELP AGENCY REFERRAL CLERK student??to be present during this assessment. ?? The last 24 hours remained??uneventful, no overnight issues reported by the staff.?? The patient reported some improvement in symptoms of psychosis, in particular auditory hallucinations . He stated that the severity and frequency of hallucinations have diminished in the last 24 hours, especially after taking medications. In spite of some improvement, as mentioned above, he continues to haveintermittent auditory hallucinations, (non-command, only auditory, no visual). He described the content of hallucinations as they would tell me to drink chocolate shake instead of coffee, do not listen to TV, etc. etc. ?? He continues to feel somewhat paranoid, earlier today he felt paranoid while talking to other patients in a group , He reported sleeping well last night???7.5 hours, feeling well rested. The patienttalked about his prior experience with psychiatric medication, At one point, he used to be on olanza pine, but he had developed EPS/akathisia, and subsequently he stopped taking medications. But this time he has not subsided or experienced any side effects from olanzapine, and he would like to continue the same as he has a favorable response to this medication. The patient has been social and visible on the unit, attending groups, but has not engaged in any unsafe behavior. Objective Vitals & Measurements T:??36.2?C??(Temporal Artery)?? HR:??112??(Peripheral)?? BP:??133/90?? SpO2:??98%?? Mental Status Examination The patient was cooperative, engaging,??mildly anxious, somewhat slow??but very mild,??good??eye contact,??speech soft and slow low volume,??described mood okay, affect??restricted,??thought process??overall linear and goal-directed, thought content??positive for paranoia,??no delusions elicited,??denied suicidality/homicidality, positive for??auditory hallucinations, noncommand, no visual hallucinations.?? Insight and judgment fair. Assessment/Plan The patient appears to be improving; symptoms of psychosis are subsiding. The patient is currently on olanzapine 10 mg nightly, which seems to be helpful in resolving his psychotic symptoms. The patient continues to be in need of inpatient hospitalization for stabilization and medication management. Diagnosis Auditory hallucinations Medications Inpatient acetaminophen, 1000 mg= 2 tab(s), Oral, q6hr, PRN LORazepam, 1 mg= 1 tab(s), Oral, TID, PRN melatonin, 6 mg= 2 tab(s), Oral, qHS, PRN Milk of Magnesia, 30 mL, Oral, Daily, PRN Mylanta, 30 mL, Oral, QID, PRN OLANZapine, 10 mg= 1 tab(s), Oral, qHS Vistaril, 25 mg= 1 tab(s), Oral, q4hr, PRN Home diphenhydrAMINE 25 mg oral tablet, 25 mg= 1 tab(s), Oral, q6hr, PRN Excedrin Migraine 250 mg-250 mg-65 mg oral tablet, 2 tab(s), Oral, q6hr, PRN Tums 500 mg oral tablet, chewable, 500 mg= 1 tab(s), Chewed, Daily, PRN Physician Re-Certification of Medical Necessity ?? I certify that inpatient psychiatric hospital admission is medically necessary for treatment which could reasonably be expected to improve the patient's condition: _yes In need of ILOC due to:_psychosis Is the patient involuntary? _No Treatment Plan: ?? Treatment Plan Discussed and Reviewed with Patient:_y Receiving active treatment through medication, individual, group, and milieu therapy Electronically Signed By: José Manuel Lopez MD Date and Time Signed: 06/22/23 15:17 EDT History and physical note * Kristian Rand MD: PERFORM Event Display: History and Physical Authored Date: [id number] History & Physical Chief Complaint Pt arrives via EMS from [facility] for chest and head pressure. +alcohol and +marijuana. Voices in head now and chronic, telling him to hurt self and others. Extremile emotionally labile, laughing innapropriately then crying and yelling. Reason for Admission The patient presents with psychiatric problem. ??38 year old male presents to the ED with a psychiatric problem. Patient reports he is having problems and a?war?with his head. Patient notes he had drank alcohol tonight and smoked marijuana. Patient reports he had been hearing voices in his head earlier. Patient denies suicidal and homicidal ideation. Patient???s history is limited due to mental status..?? [1] History of Present Illness He is on??disability for mental illness??with a diagnosis of paranoid schizophrenia ??and he has both??SSDI??and SSI??benefits.?? He spends his time??in both [place]?? because I like it here ??and??[facility]??where his adoptive family??is based.?? He said that his most??recent hospitalization was several years ago??and that he was given medication??that helps with unwelcome thoughts??but he discontinued it??and has been self-medicating??with alcohol??and marijuana .?? He has had episodes of increasing??internal stimuli??which are?? overwhelming .?? He is interested in medication??to help with the??thoughts.?? He said that what ever medicine they gave last night??really helped and there are me voices right now .?? The MAR shows that he was given olanzapine 10 mg??plus??several doses of lorazepam 1 mg.?? He welcomes the medicine and says he would like it restarted.?? There is nosuicidal thinking, no substance craving??and he reports no withdrawal symptoms. Past Psychiatric History He says that??he had the onset of?? voices telling me to kill myself ??in high school.?? He said that he graduated high school and attempted college??but the voices were too much.?? He cannot count the number of hospitalizations??that he has had??but??the number??could be??around 10 times??most of these in [facility].?? Most recently-estimate 2 years ago-he was in[facility]psychiatric unit in [facility].?? He does not??want to talk much about his life experiences??except to say that his last relationship??was in 2008 that he is??cisgender male??straight.?? He lives a??life that is mostly isolated??with him??either hiking alone or??playing music on [place] or sometimes he can no.?? He does not report??suicide attempts.?? I try to learn more about his life historyof childhood??any pauses and becomes??momentarily??distraught??and simply says I was disciplined when I was a child .?? I do not ask further??and he reconstitutes quickly.?? He gives us permission to contact his??family??and??he is interested in access to resources??here in [place] Psychiatrist: [_] Therapist: [_] ocean export account manager: [_] PCP: [_] Substance Abuse History He does not provide details but??offers that he knows he should not be drinking alcohol??or using cannabis??and describes it as self-medication . Social History Past Medical/ Family/ Social History ?Medical history:?No active or resolved past medical history items have been selected or recorded..?Surgical history:?No active procedure history items have been selected or recorded..?Family history:?No family history items have been selected or recorded..?Problem list:?No qualifying data available [2] Family History His adoptive family is based in [facility]??and he visits them at least annually. Review of Systems Review of Systems??currently negative??constitutional symptoms??none ?Skin symptoms??none ?Genitourinary symptoms??none ?Additional review of systems information:??No complaints about??chest pain, pulmonary,??no abdominal??pain, no musculoskeletal or skin issues Physical Exam Vitals & Measurements T:??36.4?C??(Temporal Artery)?? TMIN:??36.4?C??(Temporal Artery)?? TMAX:??37.5?C??(Oral)??HR:??95??(Peripheral)?? RR:??16?? BP:??119/95?? SpO2:??100%?? HT:??172??cm?? WT:??120??kg?? WT:??120??kg??(Dosing)?? BMI:??40.56?General: ??No acute distress.?Skin: ??Warm, dry, pink. ?Head: ??Normocephalic, atraumatic. ?Neck: ??Supple, normal ROM. ?Eye: ??Extraocular movements are intact, normal conjunctiva. ?Ears, nose, mouth and throat: ??Oral mucosa moist.?Cardiovascular: ??Regular rate and rhythm, normal S1, S2, without murmurs, rubs, gallops. 2+ radial pulses bilaterally.. ?Respiratory: ??No respiratory distress, normal lung sounds bilaterally..?Gastrointestinal: ??Soft, Nontender, No organomegaly. ?Musculoskeletal: ??No lower extremity edema. No evidence of trauma..?Neurological: ??alert, no gross neurological deficits in movement..?Psychiatric: ??Mood and affect: Paranoid, Behavior: Uncooperative, Judgment: Impaired by abnormal t [3] Mental Status Exam The patient is alert??and oriented in all 4 spheres,??and to situation.?? They are dressed in hospital garb??with acceptable hygiene.?? The behavior is appropriate??but reserved and they are engaged in the interview.?? Psychomotor energy is slightly slowed and there are no tics,??tremors, or involuntary movements.?? Speech??is normal pat, tone, and volume??without conversational lag.?? Mood is?? better ??and affect is blunted??but with good eye contact. ??Thought process is concrete and goal oriented, and it is future oriented.?? Thought content is currently??without??expressed or observed??hallucination or??expressed delusion. ??At the moment he does not appear to be responding to internal stimuli.?Memory is intact to recent events as tested by known items. There is no self-harm expression.?There is no suicidal or homicidal expression.?? There are no prominent cognitive distortions.?? Insight and judgment are fair, attention and concentration are??mildly distracted.??Impulse control is intact. ??Knowledge is appropriate for level of education. ?? Assessment/Plan He has a pre-existing diagnosis of??paranoid schizophrenia??and??provides a??coherent history of??onset of symptoms, history,??effectiveness of medication??and willingness to reenter treatment.?? He also provides access to??collateral information and we will gain this.?? In the meantime he has had a very positive??response to low-dose olanzapine/lorazepam. Diagnosis Auditory hallucinations ??Paranoid schizophrenia Plan Reintroduce medication, olanzapine 10 mg daily??lorazepam 1 mg??p.o. 3 times daily??as needed,??collateral??information gathering Time Spent with Patient 30 minutes Coordination of Care Social work will??complete the??collateral??contacts identified in the joint interview Problem List/Past Medical History Ongoing No qualifying data Historical No qualifying data Medications Inpatient acetaminophen, 1000 mg= 2 tab(s), Oral, q6hr, PRN melatonin, 6 mg= 2 tab(s), Oral, qHS, PRN Milk of Magnesia, 30 mL, Oral, Daily, PRN Mylanta, 30 mL, Oral, QID, PRN OLANZapine, 10 mg= 1 tab(s), Oral, qHS Vistaril, 25 mg= 1 tab(s), Oral, q4hr, PRN Home diphenhydrAMINE 25 mg oral tablet, 25 mg= 1 tab(s), Oral, q6hr, PRN Excedrin Migraine 250 mg-250 mg-65 mg oral tablet, 2 tab(s), Oral, q6hr, PRN Tums 500 mg oral tablet, chewable, 500 mg= 1 tab(s), Chewed, Daily, PRN Allergies buPROPion??(Urticaria) Lab Results Lipid Panel Chol: 207 mg/dL (06/21/23 06:15:00) HDL: 51 mg/dL (06/21/23 06:15:00) LDL: 134 mg/dL (06/21/23 06:15:00) Tri mg/dL (06/21/23 06:15:00) Chemistry BUN: 16 mg/dL (06/20/23 04:18:00) Calcium Level: 9.9 mg/dL (06/20/23 04:18:00) Chloride: 106 mmol/L (06/20/23 04:18:00) Creatinine: 1.2 mg/dL (06/20/23 04:18:00) Ethanol Level: 8.6 mg/dL (06/20/23 04:18:00) Glucose Level: 99 mg/dL (06/21/23 06:15:00) Potassium Level:??3.3 mmol/L??Low (06/20/23 04:18:00) Sodium Level: 140 mmol/L (06/20/23 04:18:00) TSH: 1.19 mcIU/mL (06/20/23 04:18:00) LFT Albumin Level: 4.2 gm/dL (06/20/23 04:18:00) Alk Phos: 97 unit/L (06/20/23 04:18:00) ALT: 26 IU/L (06/20/23 04:18:00) AST: 21 IU/L (06/20/23 04:18:00) Bili Total: 0.6 mg/dL (06/20/23 04:18:00) Total Protein: 8.2 gm/dL (06/20/23 04:18:00) Hematology Hct: 47.3 % (06/20/23 04:18:00) Hgb:??16.5 gm/dL??High (06/20/23 04:18:00) Platelet: 217 x10(3)/mcL (06/20/23 04:18:00) RBC: 5.68 x10(6)/mcL (06/20/23 04:18:00) WBC: 6.7 x10(3)/mcL (06/20/23 04:18:00) Urine Drug Screen Amphetamines Screen: Not Detected [facility] (06/20/23 17:50:00) Barbiturates Screen: Not Detected [facility] (06/20/23 17:50:00) Benzodiazepines Screen: Detected [facility] (06/20/23 17:50:00) Buprenorphine Screen: Not Detected [facility] (06/20/23 17:50:00) Cocaine Screen: Not Detected [facility] (06/20/23 17:50:00) Methadone Screen: Not Detected [facility] (06/20/23 17:50:00) Methamphetamines Screen: Not Detected [facility] (06/20/23 17:50:00) Opiate Screen: Not Detected [facility] (06/20/23 17:50:00) Oxycodone Screen: Not Detected [facility] (06/20/23 17:50:00) Phencyclidine Screen: Not Detected [facility] (06/20/23 17:50:00) T-Cannabinol Screen: Detected [facility] (06/20/23 17:50:00) Tricyclics Screen: Not Detected [facility] (06/20/23 17:50:00) [1]??Psychiatric Problem *ED; AMADO GARZON MD 06/20/2023 03:47 EDT [2]??Psychiatric Problem *ED; AMADO GARZON MD 06/20/2023 03:47 EDT [3]??Psychiatric Problem *ED; AMADO GARZON MD 06/20/2023 03:47 EDT Electronically Signed By: Kristian Rand MD Date and Time Signed: 06/21/23 09:30 EDT Patient Care team information Care Team Personnel Name: No Local PCP No Local PCP, Member Role: Primary Care Physician Name: Bernarda Celis RN Position: ED Nurse/PIPE OUT WORKER Member Role: ED Nurse Name: NICOLE MORTENSEN PA-C Position: Physician - ED Member Role: ED Physician Supervisor Agency Appointments Address: Address: Emergency Department [address] [place] [address] Name: AMADO GARZON MD Position: Physician - ED Member Role: ED Physician Address: Address: Emergency Department [address] [place] [address]
[2023-12-18 16:45] VITALS: PULSE 108; TEMP 36.6; O2SAT 96
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
--- NOTE | 2023-12-18 17:46 | PC.NURSE ---
Pt refused flu vaccine at this time
[2023-12-18 17:53] VITALS: BMI 36.5
[2023-12-18 20:00] VITALS: RESP 18
--- NOTE | 2023-12-18 22:05 | PC.NURSE ---
Bernardo is noted to be isolating in his room throughout the evening. he refused HS medication. endorses suicidal ideation but states I won't do anything here though denies homicidal ideation, depression/anxiety, and auditory/visual hallucinations. monitor for safety, continue Plan of Care
[2023-12-19 07:55] VITALS: BP 131/74; PULSE 99; RESP 16; TEMP 36.3; O2SAT 95
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
[2023-12-19] MEDS: Nicotine Polacrilex 2 MG GUM 4 MG BUCCAL ×2 (14:30→17:17)
[2023-12-19] MEDS: LORazepam 1 MG TABLET PO (19:16)
[2023-12-19 21:46] VITALS: BP 132/77; PULSE 77; RESP 18; TEMP 36.5; O2SAT 98
[2023-12-20 08:05] VITALS: BP 118/78; PULSE 89; RESP 14; TEMP 36.2; O2SAT 97
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
[2023-12-20] MEDS: Nicotine Polacrilex 2 MG GUM 4 MG BUCCAL (11:08)
== END 2023-12-20 11:42 | disposition home or self-care (01) | DRG 885 ==
LOC: HO.ED 12-18 08:33 → HO.PADLT16 12-18 16:30
PROVIDERS: Admitting Provider Registered Nurse; Emergency Provider Emergency Medicine; Visit Provider Psychiatry & Neurology Psychiatry
DX: F20.0 Paranoid schizophrenia (principal); R45.851 Suicidal ideations; Z59.02 Unsheltered homelessness; Z76.5 Malingerer [conscious simulation]; Z20.822 Contact with and (suspected) exposure to COVID-19; Z79.899 Other long term (current) drug therapy
CPT/HCPCS: 36415; 80048; 80076; 80307; 81001; 85025; 87086; 87635; 99285; J1630; J2060; S9485

== ENCOUNTER → 2023-12-18 16:20 | Outpatient (BNV) | payer OTHER, SELFPAY | PROVIDERS: Admitting Provider Registered Nurse; Emergency Provider Emergency Medicine; Visit Provider Psychiatry & Neurology Psychiatry | DX: F20.0 Paranoid schizophrenia (principal) | CPT/HCPCS: 90792; 99239 ==